=== PATIENT | male | born 1955 | race Caucasian/White ===

== ENCOUNTER → 2023-12-31 10:54 | Outpatient (BNVA) | payer SELFPAY | PROVIDERS: Visit Provider Nurse Practitioner | DX: S82.192A Other fracture of upper end of left tibia, initial encounter for closed fracture; W01.0XXA Fall on same level from slipping, tripping and stumbling without subsequent striking against object, initial encounter; Y92.091 Bathroom in other non-institutional residence as the place of occurrence of the external cause | CPT/HCPCS: 73590 ==

== ENCOUNTER → 2024-01-21 10:01 | Outpatient (BNVA) | payer SELFPAY | PROVIDERS: PCP Family Medicine; Visit Provider Nurse Practitioner | DX: S82.192D Other fracture of upper end of left tibia, subsequent encounter for closed fracture with routine healing; X58.XXXD Exposure to other specified factors, subsequent encounter | CPT/HCPCS: 73590 ==

== ENCOUNTER → 2024-02-11 08:48 | Outpatient (BNVA) | payer MEDICARE, SELFPAY | PROVIDERS: PCP Family Medicine; Visit Provider Nurse Practitioner | DX: S82.192D Other fracture of upper end of left tibia, subsequent encounter for closed fracture with routine healing (principal); X58.XXXD Exposure to other specified factors, subsequent encounter; Z46.89 Encounter for fitting and adjustment of other specified devices | CPT/HCPCS: 73590; 99024 ==

== ENCOUNTER 2024-02-11 10:41 | Outpatient (CLI) | payer MEDICARE, SELFPAY | END 2024-02-11 10:42 | disposition home or self-care (01) | LOC: SPT 10:42 | PROVIDERS: PCP Family Medicine; Visit Provider Nurse Practitioner | DX: Z46.89 Encounter for fitting and adjustment of other specified devices (principal); S82.192D Other fracture of upper end of left tibia, subsequent encounter for closed fracture with routine healing; X58.XXXD Exposure to other specified factors, subsequent encounter | CPT/HCPCS: 97760; L1832 ==

== ENCOUNTER → 2024-02-25 09:21 | Outpatient (BNVA) | payer MEDICARE, SELFPAY | PROVIDERS: PCP Family Medicine; Visit Provider Nurse Practitioner | DX: S82.192D Other fracture of upper end of left tibia, subsequent encounter for closed fracture with routine healing (principal); X58.XXXD Exposure to other specified factors, subsequent encounter | CPT/HCPCS: 73590; 99213 ==

== ENCOUNTER → 2024-03-12 13:52 | Outpatient (BNVA) | payer MEDICARE, SELFPAY | PROVIDERS: Visit Provider Family Medicine | DX: I10 Essential (primary) hypertension (principal); Z68.41 Body mass index [BMI] 40.0-44.9, adult; M10.9 Gout, unspecified; N40.0 Benign prostatic hyperplasia without lower urinary tract symptoms | CPT/HCPCS: 80053; 80061; 84153; 84550; 85025 ==

== ENCOUNTER → 2024-03-24 09:02 | Outpatient (BNVA) | payer MEDICARE, SELFPAY | PROVIDERS: Visit Provider Nurse Practitioner | DX: S82.192D Other fracture of upper end of left tibia, subsequent encounter for closed fracture with routine healing (principal); X58.XXXD Exposure to other specified factors, subsequent encounter | CPT/HCPCS: 73590; 99213 ==

== ENCOUNTER → 2024-04-25 09:32 | Outpatient (BNVA) | payer MEDICARE, SELFPAY | PROVIDERS: Visit Provider Nurse Practitioner | DX: S82.192D Other fracture of upper end of left tibia, subsequent encounter for closed fracture with routine healing (principal); X58.XXXD Exposure to other specified factors, subsequent encounter | CPT/HCPCS: 73590; 99213 ==

== ENCOUNTER → 2024-09-10 09:13 | Outpatient (BNVA) | payer MEDICARE, SELFPAY | PROVIDERS: PCP Family Medicine; Visit Provider Family Medicine | DX: R97.20 Elevated prostate specific antigen [PSA] (principal); Z12.5 Encounter for screening for malignant neoplasm of prostate | CPT/HCPCS: 84153 ==

== ENCOUNTER 2024-09-12 14:44 | Outpatient (CLI) | payer MEDICARE, SELFPAY ==
--- NOTE | 2024-09-12 15:15 | US_ITS ---
WS: [id number] INDICATION: Lump on RIGHT elbow TECHNIQUE: Ultrasound RIGHT elbow FINDINGS: Images labeled RIGHT elbow palpable area. Complex fluid collection deep to the palpable marker may represent a distended inflamed olecranon bursa. Recommend correlation with area of abnormality. If the area of pain is dorsal elbow, then findings likely present a distended inflamed olecranon bursa and would be compatible with olecranon bursitis. US/US soft tissue/extremity [id number] IMPRESSION: Suspected olecranon bursitis assuming the area of concern overlies the dorsal elbow
== END 2024-09-12 14:45 | disposition home or self-care (01) ==
LOC: RAD 14:45
PROVIDERS: PCP Family Medicine; Visit Provider Family Medicine
DX: R93.89 Abnormal findings on diagnostic imaging of other specified body structures (principal)
CPT/HCPCS: 76882

== ENCOUNTER → 2024-10-27 09:11 | Outpatient (BNVA) | payer MEDICARE, SELFPAY | PROVIDERS: PCP Family Medicine; Visit Provider Nurse Practitioner | DX: M70.21 Olecranon bursitis, right elbow (principal); M25.521 Pain in right elbow | CPT/HCPCS: 20605; 73080; 99214 ==

== ENCOUNTER → 2024-12-01 09:39 | Outpatient (BNVA) | payer MEDICARE, SELFPAY | PROVIDERS: PCP Family Medicine; Visit Provider Nurse Practitioner | DX: M70.21 Olecranon bursitis, right elbow (principal) | CPT/HCPCS: 99213 ==

== ENCOUNTER → 2025-01-29 09:59 | Outpatient (BNVA) | payer MEDICARE, SELFPAY | PROVIDERS: PCP Family Medicine; Visit Provider Family Medicine | DX: M10.9 Gout, unspecified (principal); R97.20 Elevated prostate specific antigen [PSA]; Z12.5 Encounter for screening for malignant neoplasm of prostate | CPT/HCPCS: 84153; 84550 ==